=== PATIENT | male | born 1960 | race Caucasian/White ===

== ENCOUNTER 2019-11-16 15:47 | Emergency (ER) | payer OTHER ==
[~2019-11-16] VITALS: Ht 170.2 cm; Wt 72.6 kg
[2019-11-16 15:49] VITALS: BP 134/81
--- NOTE | 2019-11-16 15:54 | NUR ---
4 mg versed verbal order from dr gaines. pt altered. attempting to get up from bed
[2019-11-16] MEDS ORDERED: MIDAZOLAM 2 MG/2 ML VIAL IM ONE (15:55)
--- NOTE | 2019-11-16 15:58 | NUR ---
efraín mcgarry administered versed .
[2019-11-16] MEDS ORDERED: NACL 0.9% 1,000 ML IV ONE (16:00)
[2019-11-16] MEDS ORDERED: PHENobarbital 65 MG/ML VIAL IV ONE ×3 (16:00→17:50)
[2019-11-16] MEDS ORDERED: HALOPERIDOL IM 5 MG/ML VIAL IM ONE (16:00)
--- NOTE | 2019-11-16 16:00 | NUR ---
SEIZURE PRECAUTION INSTILLED SITTER AT BEDSIDE.
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
--- NOTE | 2019-11-16 16:01 | NUR ---
VERBAL ORDER AND READ BACK TO DR GOLDBERG TO HOLD BRODY THOMPSON.
--- NOTE | 2019-11-16 16:10 | NUR ---
pt to ct scan via [facility].
[2019-11-16 16:23] LABS: BASOPHILS # (AUTO) 0.1 K/uL (0.00-0.22); BASOPHILS % (AUTO) 1.3 % (0.0-2.0); EOSINOPHILS % (AUTO) 0.2 % (0.0-4.0); HEMATOCRIT 30.7 % (36-52); HEMOGLOBIN 10.2 g/dL (12.0-18.0); LYMPHOCYTES # (AUTO) 0.4 K/uL (2.0-11.5); LYMPHOCYTES % (AUTO) 7.7 % (20.5-51.1); MEAN CORPUSCULAR HEMOGLOBIN 28 pg (27-31); MEAN CORPUSCULAR HGB CONC 33 g/dL (33-37); MEAN CORPUSCULAR VOLUME 84.6 fL (80-94); MONOCYTES # (AUTO) 0.7 K/uL (0.8-1.0); MONOCYTES % (AUTO) 12.5 % (1.7-9.3); NEUTROPHILS # (AUTO) 4.2 K/uL (1.8-7.7); NEUTROPHILS % (AUTO) 78.3 % (42.2-75.2); PLATELET COUNT (AUTO) 157 K/uL (140-450); RED BLOOD CELL COUNT(AUTO) 3.63 MIL/uL (4.20-6.10); RED CELL DISTRIBUTION WIDTH 21.4 % (11.6-13.7); WHITE BLOOD COUNT (AUTO) 5.3 K/uL (4.8-10.8)
--- NOTE | 2019-11-16 16:26 | NUR ---
pt back fcro ct scan via [facility].
--- NOTE | 2019-11-16 16:30 | NUR ---
dr gaines at bedside evaluating pt.
[2019-11-16] MEDS ORDERED: PHENobarbital 130 MG/ML VIAL ONE ×2 (16:34→17:49)
[2019-11-16 16:36] LABS: PROTHROMBIN TIME 11.4 secs (10.8-13.4)
[2019-11-16 16:40] LABS: ALBUMIN 4.1 g/dL (3.4-5.0); ANION GAP 17.4 (8-16); ASPARTATE AMINOTRANSFERASE 217 U/L (15-37); CARBON DIOXIDE 22.3 mmol/L (21-32); CHLORIDE 93 mmol/L (98-107); CREATININE 1.1 mg/dL (0.6-1.3); GFR ARICAN-AMERICAN 89 mL/min (>90); GLUCOSE 139 mg/dL (74-106); LIPASE 305 U/L (73-393); POTASSIUM 3.7 mmol/L (3.5-5.1); SODIUM SERUM 129 mmol/L (136-145); TOTAL BILIRUBIN 1.7 mg/dL (0.0-1.0); UREA NITROGEN, BLOOD 5 mg/dL (7-18)
[2019-11-16] MEDS ORDERED: levETIRAcetam 1,000 MG in NACL 0.9% 100 ML IV ONE (16:45)
--- NOTE | 2019-11-16 16:47 | NUR ---
xray at bedside,
--- NOTE | 2019-11-16 16:57 | NUR ---
verbal order read back hold phenobarbital drip per dr gaines.
[2019-11-16] MEDS ORDERED: levETIRAcetam 100 MG/ML VIAL IV ONE (17:00)
[2019-11-16 17:17] LABS: BARBITURATE, URINE NEGATIVE ng/ml (NEG <=200); BENZODIAZEPINE, URINE POSITIVE ng/mL (NEG <=200); CANNABINOID, URINE NEGATIVE ng/mL (NEG <=50); COCAINE, URINE NEGATIVE ng/mL (NEG <=300); OPIATE, URINE NEGATIVE ng/mL (NEG <=2000); PHENCYCLIDINE SCREEN,URINE NEGATIVE ng/mL (NEG <=25)
--- NOTE | 2019-11-16 18:20 | NUR ---
CALLED [facility] REGARDING TRANSFER OF PT , SPOKE TO ED RN LOUIE GAVE REPORT PT STATUS.
[2019-11-16 18:35] VITALS: BP 149/83
--- NOTE | 2019-11-16 18:35 | NUR ---
Patient to be transferred to [facility]. Is being transferred due to higher level of care. Receiving facility has accepting physician and available space. ER physician has signed transfer form. Patient or responsible alliance party has agreed to transfer and signed form. Patient belongings inventoried and will be sent with patient. Copy of nursing notes, lab reports, EKG, Physicians Orders and X-rays to be sent with patient. Report called to efraín patterson at receiving facility. [facility] ambulance service has been called for transfer. ETA 10 minutes..
== END 2019-11-16 18:35 | disposition short-term general hospital (02) ==
LOC: MERGE 15:47 → MED 15:47
DX: I62.00 Nontraumatic subdural hemorrhage, unspecified (principal); F10.239 Alcohol dependence with withdrawal, unspecified; G93.40 Encephalopathy, unspecified; R74.01 Elevation of levels of liver transaminase levels; F10.99 Alcohol use, unspecified with unspecified alcohol-induced disorder
CPT/HCPCS: 36415; 70450; 71045; 80053; 80305; 83690; 85025; 85610; 87426; 90471; 90715; 93005; 96365; 96372; 96375; 99291; G0482; J1953; J2560; J7030; Q0092